=== PATIENT | male | born 1950 | race Caucasian/White ===

== ENCOUNTER → 2017-12-08 | Outpatient (CLI) | payer MEDICARE, BC ==
[2013-01-12 09:30] VITALS: BP 122/74
[~2017-12-08] MED LIST: GOOD SENSE ASPI81 M1 PO; MULTIPLE VITAMI1 CAP PO
== END ==
LOC: RAD 16:18
DX: M25.562 Pain in left knee (principal)

== ENCOUNTER 2018-01-18 08:30 | Outpatient (RCR) | payer MEDICARE, BC ==
[2013-01-12 09:30] VITALS: BP 122/74
== END 2018-01-18 09:00 | disposition home or self-care (01) ==
LOC: PT 08:30
DX: M25.562 Pain in left knee (principal); R09.89 Other specified symptoms and signs involving the circulatory and respiratory systems
CPT/HCPCS: G8978-GP; G8979-GP

== ENCOUNTER 2021-04-01 11:40 | Emergency (ER) | payer MEDICARE, BC ==
[~2021-04-01 11:40] MED LIST changes: +ASPIRIN E.C. 8181 MG PO; -GOOD SENSE ASPI81 M1 PO; -MULTIPLE VITAMI1 CAP PO; +MULTIPLE VITAMI1 TA1 PO
[2021-04-01 14:36] VITALS: BP 156/92
== END 2021-04-01 15:08 | disposition short-term general hospital (02) ==
LOC: ED 11:40
DX: T18.5XXA Foreign body in anus and rectum, initial encounter (principal); Z87.891 Personal history of nicotine dependence

== ENCOUNTER → 2024-12-18 | Outpatient (CLI) | payer MEDICARE, BC | LOC: LAB 15:17 | DX: Z13.1 Encounter for screening for diabetes mellitus (principal); Z11.59 Encounter for screening for other viral diseases ==